=== PATIENT | male | born 1925 | race Caucasian/White ===

== ENCOUNTER 2016-04-08 09:43 | Inpatient (IN) | payer OTHER ==
--- NOTE | 2016-04-06 10:42 | GHP ---
[f rep st] PREOP HISTORY AND PHYSICAL DATE OF ADMISSION: 04/08/2016 HISTORY OF PRESENT ILLNESS: Patient is an 89-year-old male, who returns for surgery for his left leg . He has had a symptom of pain/claudication in his left leg for quite some time. In November 2015, the patient underwent a CT angiogram with runoff, done at [facility], which demonstrat ed total occlusion of the superficial femoral arteries, bilateral popliteal artery stenosis, occlusio ns of the posterior tibial arteries bilaterally, and occlusion of the left anterior tibial artery. T he patient underwent surgery January [address] Mas, a right femoral popliteal bypass with graf galvan. He subsequently developed a large seroma/abscess and underwent incision and drainage and further hospitalization, required wound care. The patient's right leg has healed and has no signs of infecti on. He desires left leg surgery because it is his more symptomatic leg. PAST MEDICAL HISTORY: Congestive heart failure. Coronary artery disease, status post CABG. Periphe ral vascular disease, hypertension, hyperlipidemia, chronic kidney disease, dementia. ALLERGIES: No known drug allergies. SOCIAL HISTORY: Former smoker. No alcohol. He moved from [place] approximately 10 months ago to [place] [employer] with his daughter. REVIEW OF SYSTEMS: He had a negative 10-point review of systems. MEDICATIONS: Please see list, which includes Plavix that patient should take through surgery. Other medications include Norvasc, Lasix, metoprolol, Lipitor, lisinopril. PHYSICAL EXAMINATION: GENERAL: Patient is an alert, elderly male, in no apparent distress. HEAD AN D NECK: Normocephalic atraumatic. CHEST: CTA bilaterally. HEART: Regular and rate. ABDOMEN: So ft, nontender. EXTREMITIES: Right leg demonstrates healed incision over the right medial thigh. Le ft leg decreased pulses to palpation, no edema; full range of motion of the knee and ankle without di fficulty. IMPRESSION: 89-year-old male with left leg pain/claudication in the setting of arterial stenosis. RECOMMENDATION: Left femoral popliteal bypass with possible vein graft was discussed with the patien t in detail, including risks of failure to heal, bleeding, infection, emboli, bypass failure, and rooney b loss. The patient would like to proceed with scheduling surgery for April 08, 2016. /[id number]/MODL
[~2016-04-08 09:43] MED LIST: ceFAZolin 2 GM/DEXTROSE 100 ML IV ONE
[2016-04-08] MEDS ORDERED: THROMBIN (RECOMBINANT) 20,000 UNIT SPRAY TP ONE (10:06)
[2016-04-08] MEDS ORDERED: PROTAMINE SULFATE 50 MG/5 ML VIAL IVP ONE ×2 (10:06→18:22)
[2016-04-08] MEDS ORDERED: IOTHALAMATE MEG (CONRAY) 50 ML VIAL IV ONE (10:06)
[2016-04-08] MEDS ORDERED: BUPIVACAINE 0.5% 30 ML SDV ONE (10:07)
[2016-04-08] MEDS ORDERED: PAPAVERINE HCL 60 MG/2 ML SDV ONE (10:07)
[2016-04-08] MEDS ORDERED: SKIN ADHESIVE (DERMABOND) 1 EACH TP ONE ×2 (10:08→18:58)
[2016-04-08] MEDS ORDERED: LR 1,000 ML IV ONE (11:00)
[2016-04-08] MEDS ORDERED: ceFAZolin 2 GM/DEXTROSE 100 ML IV ONE (11:00)
[2016-04-08] MEDS ORDERED: LIDOCAINE 1% 5 ML SDV ID PRN (11:00)
[2016-04-08] MEDS ORDERED: fentaNYL 250 MCG/5 ML INJ ONE (15:43)
[2016-04-08] MEDS ORDERED: PROPOFOL 200 MG/20 ML VIAL ONE (16:59)
[2016-04-08] MEDS ORDERED: COLLAGENASE 30 GM OINTMENT TP PRN (17:57)
[2016-04-08] MEDS ORDERED: PHENYLEPHRINE HCL 100 MCG/ML SYR ONE (17:58)
--- NOTE | 2016-04-08 18:03 | POSTOPPROG ---
Post Op Note Date of Operation: 04/08/16 Surgeon: Gustavo aMs Laborer Concrete Paving: Oswald Hodgson Anesthesiologist: Chase Warm Anesthesia: GET(General Endotracheal) Pre-op Diagnosis: severe L leg PVD, chronic LE wounds Post-op Diagnosis: same Procedure: L below knee fem pop bypass c impra graft c endarterectomy, profundoplasty Findings: hard calcified plaque Inf/Abcess present in the surg proc area at time of surgery?: No EBL: 50-100 Complications: none Specimen(s): plaque
[2016-04-08] MEDS ORDERED: DESMOPRESSIN ACETATE 18 MCG in NS 50 ML IV ONE (18:30)
[2016-04-08] MEDS ORDERED: ALBUMIN 5% 250 ML BOTTLE IV ONE (18:45)
[2016-04-08] MEDS: HYDROmorphONE/DILAUDID 1 MG/ML SYR IVP PRN ×2 (20:26→21:49)
[2016-04-08] MEDS: NS W/ 20 KCl/L 1,000 ML IV SCH (21:37)
[2016-04-08] MEDS: OXYCODONE/APAP 5/325 TAB PO PRN (21:41)
[2016-04-08] MEDS: OLANZapine 2.5 MG TAB PO SCH (21:42)
[2016-04-08] MEDS: traMADol 50 MG TAB PO PRN (21:42)
[2016-04-08] MEDS: DOXYCYCLINE HYCLATE 100 MG CAP/TAB PO SCH (21:42)
[2016-04-08] MEDS: METOPROLOL TARTRATE 25 MG TAB PO SCH (21:43)
[2016-04-08] MEDS: ONDANSETRON 4 MG/2 ML VIAL IVP PRN (23:21)
[2016-04-09 05:35] LABS: HEMATOCRIT 26.2 % (40.0-51.0); HEMOGLOBIN 8.8 g/dL (13.7-17.5)
[2016-04-09 05:42] LABS: ANION GAP 5 mEq/L (8-16); CALCIUM 7.2 mg/dL (8.5-10.4); CARBON DIOXIDE 22 mEq/l (22-31); CHLORIDE 110 mEq/L (97-110); CREATININE 1.1 mg/dL (0.7-1.3); GLOMERULAR FILTRATION RATE > 60; GLUCOSE 127 mg/dL (70-100); POTASSIUM 4.6 mEq/L (3.5-5.2); SODIUM 137 mEq/L (134-144)
--- NOTE | 2016-04-09 08:52 | WOCRNPDOC ---
LATRELL Advanced Assessment Note - Skin Integrity Problem, Advanced Assess Left Heel Dressing Type: Abdominal Pads, Allevyn Life Dressing Description: Clean/Dry Exudate Amount: Scant Exudate Color: Reddish/Yellow Exudate Characteristic(s): Serosanguinous Jarek Wound Tissue: Dry, Calloused Jarek Wound Swelling: None Wound Bed Color: Red, Yellow Wound Bed Constitution: Smooth Tissue, Loose Slough Wound Edges: Punched Out, Well Defined Site Odor: None Site Measurement - Head-to-Toe Length X Width X Depth (cm): 05.cmx0.5cmx0.3xm Skin Integrity Problem Comment: This patient is well known to wound care, previously seen before fem-pop bypass. Wound appearance consistent w/ arterial insufficiency, w/ cut-out, distinct margins. Wound bed is 75% smooth tissue, 25 % loose slough.Calloused jarek-wound tissue, w/ mild, superficial skin fissures noted throughout L heel. Patient reports significant pain when site cleansed. Post fem-pop, this site should begin to improve. Orders written for collagen gel and Hydrofera Blue Ready. Right Anterior Thigh Dressing Type: Gauze Dressing Description: Clean/Dry, Intact Exudate Amount: None Exudate Characteristic(s): None Integumentary Issue Intervention: Visualized Under Dressing Jarek Wound Tissue: Intact, Scarred Jarek Wound Swelling: Mild Wound Bed Color: Red Wound Bed Constitution: Smooth Tissue Wound Edges: Epithelizing Site Measurement - Head-to-Toe Length X Width X Depth (cm): 0.4cmx0.2cmx0.2cm Skin Integrity Problem Comment: This is a small, healing wound, previously a large surgical wound w/ wound vac. Presently the site is almost fully- epithelialized, narrow, shallow smooth-tissue filled wound remaining. Jarek- wound tissue is intact, scar tissue from healing wound. Orders written for collagen gel and small bordered dressing.
[2016-04-09] MEDS: ENOXAPARIN 40 MG/0.4 ML SYR SC SCH (09:38)
[2016-04-09] MEDS: ATORVASTATIN CALCIUM 40 MG TAB PO SCH (09:40)
[2016-04-09] MEDS: ISOSORBIDE MONONITRATE 30 MG TAB.SR PO SCH (09:40)
[2016-04-09] MEDS: DOXYCYCLINE HYCLATE 100 MG CAP/TAB PO SCH ×2 (09:40→20:56)
[2016-04-09] MEDS: LISINOPRIL 5 MG TAB PO SCH (09:42)
[2016-04-09] MEDS: METOPROLOL TARTRATE 25 MG TAB PO SCH ×2 (09:42→20:56)
--- NOTE | 2016-04-09 12:12 | SOAPPROG ---
SOAP Progress Note Assessment/Plan: Assessment/Plan: 89 Y M c cardiac hx, PVD, recent treated R leg MRSA, now s/p L leg below knee fem pop bypass c impra graft, femoral endarterectomy c profundoplasty, POD#1. Some confusion overnight but this has been patient's baseline since I've cared for him. Palpable PT pulse, confirmed by doppler. +DP pulse on doppler. Wounds well dressed and dry. D/c bedrest precautions. PT/OT. Avoid severe bending of knee and hip. Appreciate wound care assistance in care for L calcaneal and toe wounds. Transfer to tele. 04/09/16 12:08 Subjective: No complaints. Very pleasant this am. Says a man with a mask was walking in the [place] last night. Objective: Vital Signs Temp Pulse Resp BP Pulse Ox 35.8 C L 63 11 L 82/22 L 96 04/08/16 20:00 04/09/16 11:00 04/09/16 11:00 04/09/16 11:00 04/09/16 11:00 Laboratory Results 04/09/16 05:15 04/09/16 05:15 04/08/16 04/09/16 04/10/16 05:59 05:59 05:59 Intake Total 700 Output Total 500 Balance 200 alert, nad ctab anteriorly rrr abd soft ext: LLE: groin and knee dressings dry. 1+ PT pulse, doppler DP. calcaneal ulcer clean, ~1 cm ICD10 Worksheet Patient Problems: Problems Problem Status Diagnosed Altered mental status Acute Cellulitis Acute Dehydration Acute MRSA (methicillin resistant Staphylococcus aureus) Acute 02/29/16 PVD (peripheral vascular disease) with claudication Acute
[2016-04-09] MEDS ORDERED: NS 500 ML IV ONE (13:00)
[2016-04-09] MEDS: HYDROmorphONE/DILAUDID 1 MG/ML SYR IVP PRN (16:48)
[2016-04-09] MEDS: FUROSEMIDE 40 MG TAB PO SCH (16:49)
[2016-04-09 17:16] LABS: HEMATOCRIT 24.5 % (40.0-51.0); HEMOGLOBIN 8.4 g/dL (13.7-17.5)
[2016-04-09] MEDS: ONDANSETRON 4 MG/2 ML VIAL IVP PRN (17:34)
[2016-04-09] MEDS: OXYCODONE/APAP 5/325 TAB PO PRN ×2 (17:47→23:11)
[2016-04-09] MEDS: traMADol 50 MG TAB PO PRN (18:39)
[2016-04-09] MEDS: OLANZapine 2.5 MG TAB PO SCH (20:55)
[2016-04-10] MEDS: NS W/ 20 KCl/L 1,000 ML IV SCH (01:19)
[2016-04-10] MEDS ORDERED: HALOPERIDOL LACT 5 MG/ML INJ IVP ONE (04:00)
[2016-04-10 04:27] LABS: HEMATOCRIT 21.6 % (40.0-51.0); HEMOGLOBIN 7.3 g/dL (13.7-17.5); MEAN CELL HEMOGLOBIN 32.2 pg (27.9-34.1); MEAN CELL HEMOGLOBIN CONCENTR. 33.8 g/dL (32.4-36.7); MEAN CELL VOLUME 95.2 fL (81.5-99.8); RED BLOOD CELL COUNT 2.27 10^6/uL (4.40-6.38)
[2016-04-10 04:44] LABS: ANION GAP 6 mEq/L (8-16); CALCIUM 6.9 mg/dL (8.5-10.4); CARBON DIOXIDE 20 mEq/l (22-31); CHLORIDE 115 mEq/L (97-110); GLOMERULAR FILTRATION RATE > 60; GLUCOSE 93 mg/dL (70-100); POTASSIUM 4.7 mEq/L (3.5-5.2); SODIUM 141 mEq/L (134-144)
[2016-04-10] MEDS: METOPROLOL TARTRATE 25 MG TAB PO SCH ×2 (09:28→21:28)
[2016-04-10] MEDS: ATORVASTATIN CALCIUM 40 MG TAB PO SCH (09:28)
[2016-04-10] MEDS: ENOXAPARIN 40 MG/0.4 ML SYR SC SCH (09:29)
[2016-04-10] MEDS: DOXYCYCLINE HYCLATE 100 MG CAP/TAB PO SCH ×2 (09:29→21:28)
[2016-04-10] MEDS: LISINOPRIL 5 MG TAB PO SCH (09:29)
[2016-04-10] MEDS: OXYCODONE/APAP 5/325 TAB PO PRN (11:09)
[2016-04-10] MEDS: FUROSEMIDE 40 MG TAB PO SCH (12:36)
--- NOTE | 2016-04-10 12:46 | SOAPPROG ---
SOAP Progress Note Assessment/Plan: Assessment: 89yo male s/p left below knee Fem pop bypass, femoral endarterectomy, MRSA positive last month from right leg wound. PE awake, confused but follows very simple commands, pleasant. Left leg mild ecchymosis left lower leg with small amount of drainage, thigh soft, Doppler pulse DP, PT Plan: ok to ambulate, continue slouch sitting. 04/10/16 12:44 Objective: Vital Signs Temp Pulse Resp BP Pulse Ox 36.4 C 70 20 129/46 H 95 04/10/16 11:45 04/10/16 11:45 04/10/16 11:45 04/10/16 11:45 04/10/16 11:45 Laboratory Results 04/10/16 04:00 04/10/16 04:00 04/09/16 04/10/16 04/11/16 05:59 05:59 05:59 Intake Total 700 2515 355 Output Total 500 900 200 Balance 200 1615 155 ICD10 Worksheet Patient Problems: Problems Problem Status Diagnosed Altered mental status Acute Cellulitis Acute Dehydration Acute MRSA (methicillin resistant Staphylococcus aureus) Acute 02/29/16 PVD (peripheral vascular disease) with claudication Acute
[2016-04-10] MEDS: ISOSORBIDE MONONITRATE 30 MG TAB.SR PO SCH (14:36)
[2016-04-10] MEDS ORDERED: NS 1,000 ML IV SCH (16:30)
[2016-04-10 19:06] LABS: % IMMATURE GRANULYOCYTES 0.7 % (0.0-1.1); ADD DIFF? NO; ADD MORPH? NO; ADD SCAN? NO; ATYPICAL LYMPHOCYTE FLAG 0 (0-99); FRAGMENT RBC FLAG 0 (0-99); HEMATOCRIT 28.5 % (40.0-51.0); HEMOGLOBIN 9.5 g/dL (13.7-17.5); LEFT SHIFT FLG 10 (0-99); LIPEMIA HEMOLYSIS FLAG 80 (0-99); MEAN CELL HEMOGLOBIN 30.4 pg (27.9-34.1); MEAN CELL HEMOGLOBIN CONCENTR. 33.3 g/dL (32.4-36.7); MEAN CELL VOLUME 91.1 fL (81.5-99.8); MEAN PLATELET VOLUME 10.1 fL (8.7-11.7); PLATELET CLUMPS FLAG 0 (0-99); PLATELET COUNT 83 10^3/uL (150-400); RED BLOOD CELL COUNT 3.13 10^6/uL (4.40-6.38); RED CELL DISTRIBUTION WIDTH 19.3 % (11.5-15.2)
[2016-04-10] MEDS: OLANZapine 2.5 MG TAB PO SCH (21:27)
[2016-04-11] MEDS: FUROSEMIDE 40 MG TAB PO SCH (12:00)
[2016-04-11] MEDS: ISOSORBIDE MONONITRATE 30 MG TAB.SR PO SCH (12:00)
[2016-04-11] MEDS: METOPROLOL TARTRATE 25 MG TAB PO SCH ×2 (12:00→20:19)
[2016-04-11] MEDS: ATORVASTATIN CALCIUM 40 MG TAB PO SCH (12:00)
[2016-04-11] MEDS: CLOPIDOGREL BISULFATE 75 MG TAB PO SCH (12:00)
[2016-04-11] MEDS: DOXYCYCLINE HYCLATE 100 MG CAP/TAB PO SCH ×2 (12:00→20:19)
[2016-04-11] MEDS: LISINOPRIL 5 MG TAB PO SCH (12:00)
[2016-04-11] MEDS ORDERED: POLYETHYLENE GLYCOL 3350 17 GM PKT PO PRN (18:46)
[2016-04-11] MEDS ORDERED: BISACODYL 10 MG SUPP PR PRN (18:46)
[2016-04-11] MEDS ORDERED: LACTULOSE 20 GM/30 ML UDCUP PO PRN (18:46)
[2016-04-11] MEDS ORDERED: MAGNESIUM HYDROXIDE 30 ML UDCUP PO PRN (18:46)
[2016-04-11 19:02] LABS: % IMMATURE GRANULYOCYTES 0.5 % (0.0-1.1); ABSOLUTE IMMATURE GRANULOCYTES 0.07 10^3/uL (0.00-0.10); ADD DIFF? NO; ADD MORPH? NO; ADD SCAN? NO; ATYPICAL LYMPHOCYTE FLAG 0 (0-99); FRAGMENT RBC FLAG 0 (0-99); HEMATOCRIT 27.8 % (40.0-51.0); HEMOGLOBIN 9.4 g/dL (13.7-17.5); LEFT SHIFT FLG 0 (0-99); LIPEMIA HEMOLYSIS FLAG 90 (0-99); MEAN CELL HEMOGLOBIN 31.2 pg (27.9-34.1); MEAN CELL HEMOGLOBIN CONCENTR. 33.8 g/dL (32.4-36.7); MEAN CELL VOLUME 92.4 fL (81.5-99.8); MEAN PLATELET VOLUME 10.6 fL (8.7-11.7); PLATELET CLUMPS FLAG 10 (0-99); PLATELET COUNT 80 10^3/uL (150-400); RED BLOOD CELL COUNT 3.01 10^6/uL (4.40-6.38); RED CELL DISTRIBUTION WIDTH 18.7 % (11.5-15.2)
[2016-04-11] MEDS: SENNOSIDES/DOCUSATE SODIUM TAB PO SCH (20:19)
[2016-04-11] MEDS: OLANZapine 2.5 MG TAB PO SCH (20:19)
[2016-04-12] MEDS: ISOSORBIDE MONONITRATE 30 MG TAB.SR PO SCH (08:26)
[2016-04-12] MEDS: SENNOSIDES/DOCUSATE SODIUM TAB PO SCH ×2 (08:26→20:59)
[2016-04-12] MEDS: LISINOPRIL 5 MG TAB PO SCH (08:27)
[2016-04-12] MEDS: FUROSEMIDE 40 MG TAB PO SCH (08:27)
[2016-04-12] MEDS: DOXYCYCLINE HYCLATE 100 MG CAP/TAB PO SCH ×2 (08:27→20:54)
[2016-04-12] MEDS: CLOPIDOGREL BISULFATE 75 MG TAB PO SCH (08:27)
[2016-04-12] MEDS: ATORVASTATIN CALCIUM 40 MG TAB PO SCH (08:27)
[2016-04-12] MEDS: METOPROLOL TARTRATE 25 MG TAB PO SCH ×2 (08:27→20:54)
--- NOTE | 2016-04-12 11:13 | SOAPPROG ---
SOAP Progress Note Assessment/Plan: Assessment: s/p fem pop and femoral endarterectomy. Doing well May ambulate Slouch sitting S: Has pain but tolerable Incision at groin is cdi Ecchymosis by incision on lower leg Foot swollen and tender. Faint palpable pulse CTAB Plan: 04/12/16 11:12 Objective: Vital Signs Temp Pulse Resp BP Pulse Ox 36.5 C 87 14 158/67 H 99 04/12/16 08:00 04/12/16 08:00 04/12/16 08:00 04/12/16 08:00 04/12/16 08:00 Laboratory Results 04/11/16 18:34 04/10/16 04:00 04/11/16 04/12/16 04/13/16 05:59 05:59 05:59 Intake Total 2438.5 2461 Output Total 9308 0970 Balance 588.5 -389 ICD10 Worksheet Patient Problems: Problems Problem Status Diagnosed Altered mental status Acute Cellulitis Acute Dehydration Acute MRSA (methicillin resistant Staphylococcus aureus) Acute 02/29/16 PVD (peripheral vascular disease) with claudication Acute
[2016-04-12] MEDS: traMADol 50 MG TAB PO PRN (14:42)
--- NOTE | 2016-04-12 16:55 | CPEKG ---
Heart Rate: 81 RR Interval: 741 QRSD Interval: 108 QT Interval: 404 QTC Interval: 469 QRS Ideal: 71 T Wave Ideal: 50 EKG Severity - ABNORMAL ECG - EKG Impression: ATRIAL FIBRILLATION EKG Impression: LOW VOLTAGE IN FRONTAL LEADS EKG Impression: LEFT VENTRICULAR HYPERTROPHY EKG Impression: LVH noted. Electronically Signed By: Jori Guerra 13-Apr-2016 08:34:19
[2016-04-12 17:31] LABS: TROPONIN I 0.265 ng/mL (0-0.034)
--- NOTE | 2016-04-12 18:43 | DX ---
Portable AP Upright Chest April 12, 2016 at 6:22 p.m. Clinical History: 89-year-old male inpatient with chest pain. The patient has a prior surgical histor y of a right femoropopliteal bypass on February 11, 2016. Comparison Study: Chest, dated February 29, 2016. Findings: Again noted are median sternotomy wires and mediastinal surgical clips. Telemetry monitorin g lead lines and oxygen tubing are present. The cardiac silhouette is within normal limits, given the portable AP technique. There has been development of bibasilar areas of pleuroparenchymal consolidat ion, consistent with atelectasis, infiltrate, and/or pleural effusion. The pulmonary vasculature is n ormal. There is mural calcification of the aortic knob. There is no pneumothorax. The osseous structu res are age-appropriate Impression: Postoperative changes following a prior CABG, with interim development of some bibasilar pleuroparenchymal consolidation since February 29, 2016.
[2016-04-12] MEDS ORDERED: ASPIRIN 325 MG TAB PO ONE (19:42)
--- NOTE | 2016-04-12 19:55 | CPEKG ---
Heart Rate: 83 RR Interval: 723 P-R Interval: 196 QRSD Interval: 112 QT Interval: 400 QTC Interval: 470 P Gormania: 51 QRS Gormania: 60 EKG Severity - ABNORMAL ECG - EKG Impression: SINUS RHYTHM EKG Impression: NONSPECIFIC INTRAVENTRICULAR CONDUCTION DELAY EKG Impression: LEFT VENTRICULAR HYPERTROPHY Electronically Signed By: Jori Guerra 13-Apr-2016 08:33:32
[2016-04-12] MEDS: OLANZapine 2.5 MG TAB PO SCH (20:53)
--- NOTE | 2016-04-12 21:23 | GCON ---
[f rep ] CONSULTATION [facility] MEDICINE CONSULTATION. DATE OF CONSULTATION: 04/12/2016 REASON FOR CONSULTATION: I was asked to see the patient by Dr. Mona De La Vega to evaluate a patient wit h peripheral vascular disease status post fall. HISTORY OF PRESENT ILLNESS: The patient is a pleasant 89-year-old gentleman with a history of ng ry artery disease, peripheral vascular disease, who was admitted on the on for an elective femora l-popliteal and that was performed on the . He has been doing well postoperatively and today he had a fall. It appears to be mechanical in nature. He denies antecedent chest pain, lightheadedness , loss of consciousness, though he did bump his head. He is currently without complaints. He has last d no chest pain, no anginal pain. When I see the patient, he is watching the football game, clearly non-comfortable and really without complaint. He says his leg feels better. He mentions he had a bowel movement this morning. REVIEW OF SYSTEMS: A complete 10-point review of systems was conducted. Negative, except as noted i n the HPI. PAST MEDICAL HISTORY: 1. Coronary artery disease status post CABG. He had angiogram done here in February which showed 3- vessel disease with patent grafts and a plan for medical management. 2. Congestive heart failure. 3. Chronic kidney disease, baseline creatinine about 1 to 1.2. 4. Peripheral vascular disease. 5. Hypertension. 6. Hyperlipidemia. 7. Dementia. 8. Congestive heart failure with February 2016 echocardiogram showing EF of 45-50% with hypo akinesi s of the anteroseptal. ALLERGIES: No known drug allergies. MEDICATIONS: Current medications are aspirin, lactulose, hydromorphone, doxycycline, bisacodyl, Imdu r, Lasix, atorvastatin, metoprolol 12.5 b.i.d., magnesium hydroxide, MiraLAX, normal saline, Percocet , Plavix, collagenase, senna, tramadol, lisinopril, olanzapine, ondansetron. SOCIAL HISTORY: He moved here from [place] to be within his daughter. No alcohol. A former smoker. FAMILY HISTORY: Parents . PHYSICAL EXAM: VITAL SIGNS: Temperature 36.3, blood pressure 92/44, pulse 85, breathing 20 times a minute, 98% on room air. GENERAL: In no acute distress. Lying flat. HEENT: Sclerae anicteric. O ropharynx clear. Mucous membranes are moist. NECK: Supple without lymphadenopathy or JVD. LUNGS: Clear to auscultation bilaterally. HEART: S1, S2. ABDOMEN: Soft, nontender, nondistended. EXTRE MITIES: Lower extremities: Bandage in the left lower extremity. There is trace edema bilaterally. They are warm, pale. LABORATORIES: His white count yesterday was 13 with a hematocrit of 27.8 and platelets of 80,000. Two days ago, sodium was 141, potassium 4.7, chloride 115, bicarb 20, BUN 26, creatinine 1.0. Today at 4:45 p.m., his troponin was 0.265. He did have an N-STEMI that peaked at 3 in February. EKG interpreted by me shows atrial fibrillation at 81 with normal axis. There is J-point elevation i n lead 3; otherwise no ST or T-wave changes; and that was performed at 4:00 p.m. Chest x-ray interpreted by me shows postoperative changes of CABG, a pleural-parenchymal consolidatio n new from February. I have discussed the case with Dr. Mona De La Vega. ASSESSMENT/PLAN: An 89-year-old gentleman with fall and positive troponin. 1. Fall. I suspect this is mechanical in nature. I have written to check orthostatics which I thin k is reasonable. This could be done in the morning. Will follow him on telemetry. Have physical an d occupational therapy see him, which is currently ordered. 2. Positive troponin. The patient has known coronary disease. Will cycle this. His EKG is nonisch emic and he is not having anginal symptoms. Will follow. I have discussed with Dr. De La Vega. Will giv e him an aspirin. 3. Peripheral vascular disease status post bypass. 4. Anemia. Will repeat a hemoglobin in the morning. 5. Prophylaxis. The patient is on enoxaparin. 6. Coronary disease. On SHERRELL inhibitor, beta-maryuri, Plavix, aspirin, statin, and a long-acting nit rate, representing ideal medical management. 7. Question pneumonia. He is on doxycycline. We will follow. A chest x-ray was not super-overwhel kris to me. He is afebrile. Thank you for this consultation. Hospital Medicine will follow. /[id number]/MODL
[2016-04-13 06:58] LABS: % IMMATURE GRANULYOCYTES 0.5 % (0.0-1.1); ABSOLUTE IMMATURE GRANULOCYTES 0.05 10^3/uL (0.00-0.10); ADD DIFF? NO; ADD MORPH? NO; ADD SCAN? NO; ATYPICAL LYMPHOCYTE FLAG 0 (0-99); FRAGMENT RBC FLAG 0 (0-99); HEMATOCRIT 27.9 % (40.0-51.0); HEMOGLOBIN 9.6 g/dL (13.7-17.5); LEFT SHIFT FLG 10 (0-99); LIPEMIA HEMOLYSIS FLAG 90 (0-99); MEAN CELL HEMOGLOBIN 31.5 pg (27.9-34.1); MEAN CELL HEMOGLOBIN CONCENTR. 34.4 g/dL (32.4-36.7); MEAN CELL VOLUME 91.5 fL (81.5-99.8); MEAN PLATELET VOLUME 10.2 fL (8.7-11.7); PLATELET CLUMPS FLAG 0 (0-99); PLATELET COUNT 99 10^3/uL (150-400); RED BLOOD CELL COUNT 3.05 10^6/uL (4.40-6.38); RED CELL DISTRIBUTION WIDTH 17.7 % (11.5-15.2)
[2016-04-13 07:08] LABS: ANION GAP 4 mEq/L (8-16); CALCIUM 7.5 mg/dL (8.5-10.4); CARBON DIOXIDE 28 mEq/l (22-31); CHLORIDE 104 mEq/L (97-110); CREATININE 1.1 mg/dL (0.7-1.3); GLOMERULAR FILTRATION RATE > 60; GLUCOSE 91 mg/dL (70-100); POTASSIUM 3.6 mEq/L (3.5-5.2); SODIUM 136 mEq/L (134-144)
[2016-04-13 07:18] LABS: TROPONIN I 0.309 ng/mL (0-0.034)
[2016-04-13] MEDS: SENNOSIDES/DOCUSATE SODIUM TAB PO SCH ×2 (09:09→19:56)
[2016-04-13] MEDS: METOPROLOL TARTRATE 25 MG TAB PO SCH ×2 (09:15→19:58)
[2016-04-13] MEDS: FUROSEMIDE 40 MG TAB PO SCH (09:16)
[2016-04-13] MEDS: ATORVASTATIN CALCIUM 40 MG TAB PO SCH (09:16)
[2016-04-13] MEDS: ISOSORBIDE MONONITRATE 30 MG TAB.SR PO SCH (09:16)
[2016-04-13] MEDS: CLOPIDOGREL BISULFATE 75 MG TAB PO SCH (09:16)
[2016-04-13] MEDS: LISINOPRIL 5 MG TAB PO SCH (09:16)
[2016-04-13] MEDS: DOXYCYCLINE HYCLATE 100 MG CAP/TAB PO SCH ×2 (09:16→19:56)
--- NOTE | 2016-04-13 09:40 | SOAPPROG ---
SOAP Progress Note Assessment/Plan: Assessment: s/p fem pop and femoral endarterectomy. Elevated Troponin - appreciate hospitalists. Unsure of significance Fell yesterday but no residual effects May ambulate Slouch sitting S: Has pain but tolerable Incision at groin is cdi Ecchymosis by incision on lower leg Foot less swollen and less tender. Faint palpable pulse CTAB Plan: 04/12/16 11:12 04/13/16 09:39 Objective: Vital Signs Temp Pulse Resp BP Pulse Ox 36.7 C 66 13 144/85 H 97 04/13/16 08:00 04/13/16 08:00 04/13/16 08:00 04/13/16 08:00 04/13/16 08:00 Laboratory Results 04/13/16 06:49 04/13/16 06:49 04/12/16 04/13/16 04/14/16 05:59 05:59 05:59 Intake Total 2461 1180 Output Total 2850 1200 Balance -389 -20 ICD10 Worksheet Patient Problems: Problems Problem Status Diagnosed Altered mental status Acute Cellulitis Acute Dehydration Acute MRSA (methicillin resistant Staphylococcus aureus) Acute 02/29/16 PVD (peripheral vascular disease) with claudication Acute
--- NOTE | 2016-04-13 12:01 | HOSPPROG ---
Hospitalist Progress Note Assessment/Plan: 89 y/o male new to my care today admitted by trauma s/p fall with: #elevated troponin (asymptomatic) -obtain echo to eval for wall motion abnormality -will consider cards consultation as indicated #PVD (stable) #Anemia #questionable pna -cont doxy as ordered to complete 7 days of treatment #prerenal azotemia -cont to monitor Hosp med will continue to follow Subjective: denies chest pain/sob/cough/fever or chills Objective: Vital Signs Temp Pulse Resp BP Pulse Ox 36.7 C 115 H 13 108/40 L 97 04/13/16 08:00 04/13/16 11:00 04/13/16 08:00 04/13/16 11:00 04/13/16 08:00 Laboratory Results 04/13/16 06:49 04/13/16 06:49 04/12/16 04/13/16 04/14/16 05:59 05:59 05:59 Intake Total 2461 1180 Output Total 2850 1200 Balance -389 -20 Laboratory Tests 04/12/16 04/12/16 04/13/16 16:45 23:45 06:49 Troponin I 0.265 H 0.325 H 0.309 H - Physical Exam Constitutional: no apparent distress, appears nourished, not in pain Cardiovascular: regular rate and rhythym, no murmur, rub, or gallop Respiratory: no respiratory distress, no rales or rhonchi, clear to auscultation Gastrointestinal: normoactive bowel sounds, soft, non-tender abdomen, no palpable masses, No guarding, No rebound ICD10 Worksheet Patient Problems: Problems Problem Status Diagnosed Altered mental status Acute Cellulitis Acute Dehydration Acute MRSA (methicillin resistant Staphylococcus aureus) Acute 02/29/16 PVD (peripheral vascular disease) with claudication Acute
[2016-04-13] MEDS: OLANZapine 2.5 MG TAB PO SCH (19:54)
[2016-04-14 08:06] VITALS: RESP 20
[2016-04-14] MEDS: ISOSORBIDE MONONITRATE 30 MG TAB.SR PO SCH (09:08)
[2016-04-14] MEDS: ATORVASTATIN CALCIUM 40 MG TAB PO SCH (09:08)
[2016-04-14] MEDS: LISINOPRIL 5 MG TAB PO SCH (09:08)
[2016-04-14] MEDS: METOPROLOL TARTRATE 25 MG TAB PO SCH (09:08)
[2016-04-14] MEDS: CLOPIDOGREL BISULFATE 75 MG TAB PO SCH (09:08)
[2016-04-14] MEDS: DOXYCYCLINE HYCLATE 100 MG CAP/TAB PO SCH (09:08)
[2016-04-14] MEDS: FUROSEMIDE 40 MG TAB PO SCH (09:09)
[2016-04-14] MEDS: SENNOSIDES/DOCUSATE SODIUM TAB PO SCH (09:10)
--- NOTE | 2016-04-14 09:26 | ECHO ---
[id number] + + [address] : : [place] [id number] : : [phone] + + Adult Echocardiographic Report + -------+ :Name: ARIK SINCLAIR RStudy Date: 04/13/2016 11:44 AM : : Hospital Admission Number: [id number] Locati on: 204: :: 1925 Gender: Male : :Age: 89 yrs Race: WH : :Reason For Study: Eval for wall motion abnormalitiy : + -------+ MMode/2D Measurements & Calculations LVIDd: 4.0 cm EDV(Teich): 71.5 ml Ao root diam: 3.5 cm LA dimension: 3.0 cm Normal Measurement Values: + + :LVIDd (3.5-5.7cm) IVSd (0.6-1.1cm) LVPWd (0.6-1.1cm) Aortic Root (2.0-3.7cm)Left Atrium (1.5-4.0cm): :LV Vol(d) (76-115ml) LV Vol(s) (29-48ml) Ejec Fraction (50-65%)PV Abel (0.6- 1.2m/s) TV Abel (0.4-1.0m/s) : :MV E Abel (0.8-1.0m/s)MV A Abel (0.3-1.0m/s)LVOT Abel (0.7-1.2m/s) Asc Ao Abel ( 0.9-1.8m/s) : + + Doppler Measurements & Calculations MV E max abel: 87.4 cm/sec Ao V2 max: 131.2 cm/sec TR max abel: 251.9 cm/sec MV A max abel: 82.4 cm/sec Ao max P.9 mmHg TR max P.4 mmHg MV E/A: 1.1 RAP systole: 5.0 mmHg RVSP(TR): 30.4 mmHg Left Ventricle The left ventricle is normal in size. Proximal septal thickening is noted. The left ventricle is hyperdynamic. Ejection Fraction = 60-65%. No regional wall motion abnormalities noted. Right Ventricle The right ventricle is normal in size and function. Atria The left atrial size is normal. Right atrial size is normal. The interatrial septum is intact with no evidence for an atrial septal defect. Mitral Valve The mitral valve leaflets appear thickened, but open well. There is no evidence of mitral valve prolapse. There is no mitral valve stenosis. There is mild to moderate mitral regurgitation. Tricuspid Valve Normal tricuspid valve. There is mild tricuspid regurgitation. Right ventricular systolic pressure is normal. Aortic Valve The aortic valve is trileaflet. The aortic valve opens well. Mild aortic valve calcification. There is no aortic stenosis. Trace aortic regurgitation. Pulmonic Valve The pulmonic valve is normal in structure and function. There is no pulmonic valvular regurgitation. Great Vessels The aortic root is normal size. Pericardium/Pleural There is no pericardial effusion. Conclusion A complete two-dimensional transthoracic echocardiogram was performed (2D, M-mode, Doppler and color flow Doppler). Compared to the previous echo of 02/13/16, the EF has improved. Proximal septal thickening is noted. The left ventricle is hyperdynamic. Ejection Fraction = 60-65%. The mitral valve leaflets appear thickened, but open well. There is mild to moderate mitral regurgitation. There is mild tricuspid regurgitation. Right ventricular systolic pressure is normal. Mild aortic valve calcification. Trace aortic regurgitation. Compared to the echo of 02 12 and03/05 2016 there has been no significant change. The septal wall of the LV is consistent with the sigmoid shaped septum of the elderly with associated thickening, and No evidence of outflow tract obstruction. The LV EF is higher at 60 to 65%. No significant changes are noted. Final Reading Physician: Britney Srivastava signed on 04/14/2016 09:26 AM Ordering Physician: Bryan May Performed By: Malika Johnston, YURICS
--- NOTE | 2016-04-14 09:48 | SOAPPROG ---
SOAP Progress Note Assessment/Plan: Assessment/Plan: 89 Y M c cardiac hx, PVD, recent treated R leg MRSA, now s/p L leg below knee fem pop bypass c impra graft, femoral endarterectomy c profundoplasty. Inc's cdi. Palpable pedal pulses. L calcaneal ulcer healing, smaller. PT/OT. Appreciate hospitalist input re: elevated troponins. Dispo: Doing well from surgery. Consider SNF soon once medically cleared. S: Confused. This seems baseline since I've known him. Asks me how my mother is and when school starts. O: alert, confused ctab anteriorly rrr abd soft inc cdi no erythema, some ecchymosis lightly palpable PT pulse c trace edema calcaneal ulcer clean, smaller 04/14/16 09:44 Objective: Vital Signs Temp Pulse Resp BP Pulse Ox 36.6 C 78 20 108/77 99 04/14/16 08:00 04/14/16 08:00 04/14/16 08:00 04/14/16 08:00 04/14/16 08:00 Laboratory Results 04/13/16 06:49 04/13/16 06:49 04/13/16 04/14/16 04/15/16 05:59 05:59 05:59 Intake Total 1180 300 Output Total 1200 1125 Balance -20 -825 ICD10 Worksheet Patient Problems: Problems Problem Status Diagnosed Altered mental status Acute Cellulitis Acute Dehydration Acute MRSA (methicillin resistant Staphylococcus aureus) Acute 02/29/16 PVD (peripheral vascular disease) with claudication Acute
[2016-04-14 11:17] VITALS: BP 131/68; PULSE 84; TEMP 96.8; O2SAT 98
[2016-04-14] MEDS: traMADol 50 MG TAB PO PRN (12:01)
--- NOTE | 2016-04-14 12:39 | PDIAF ---
- Diagnosis Code Status: Full Code - Medication Management Discharge Medications: Medications to Continue on Transfer Lisinopril [Zestril 5 mg (*)] 5 mg PO DAILY 01/11/16 [Last Taken 02/28/16] Multivitamins [Multivitamin (*)] 1 each PO DAILY 01/11/16 [Last Taken 02/28/16] Clopidogrel Bisulfate [Plavix (*)] 75 mg PO DAILY #30 tab 01/18/16 [Last Taken 02/28/16] Atorvastatin Calcium [Lipitor 40 mg (*)] 40 mg PO DAILY #0 tab 02/17/16 [Last Taken 02/28/16] Metoprolol Tartrate [Lopressor 25 mg (*)] 12.5 mg PO BID #0 tab 02/17/16 [Last Taken 02/28/16] Furosemide [Lasix 40 MG (*)] 40 mg PO DAILY #0 tab 03/17/16 [Last Taken Unknown] Isosorbide Mononitrate [Imdur 30 mg (*)] 30 mg PO DAILY #0 tab.sr 03/17/16 [ Last Taken Unknown] Collagenase [Santyl (*)] 1 henri TP DAILY PRN 04/02/16 [Last Taken Unknown] Olanzapine [Zyprexa] 5 mg PO HS 04/02/16 [Last Taken Unknown] traMADol [Ultram 50 mg (*)] 50 mg PO Q8 PRN 04/02/16 [Last Taken Unknown] Discharge Medications: Refer to the Discharge Home Medication list for PRN reason. - Orders Services needed: Physical Therapy, Occupational Therapy Diet Recommendation: no restrictions on diet Wound Care Instructions: Wound care orders: Dressing change orders for L heel: to be done by fisher crab q 3 days and PRN. 1) cleanse w/ NS and gauze, attempting to remove any loose tissue. 2) apply skin prep to jarek-wound skin. 3) apply small bead of Keragel (in patient's wound care supplies) to wound bed. 4) cut small piece of Hydrofera Blue Ready dressing to fit in wound bed, placing the shiny side up and the dull side down into wound. 5) secure w/ steri -strips (may use Mastisol to help steri-strips adhere). 6) cover w/ 5X5 Allevyn Life dressing. Dressing change orders for R upper anterior leg (R thigh ): to be done by fisher crab q 3 days and PRN. 1) cleanse w/ NS and gauze. 2) apply skin prep to jarek-wound skin. 3) apply Keragel (in patient's wound care supplies) to wound bed. 4) cover w/ Allevyn Life dressing. Sutures/[place] Site: Follow-up with Dr. Mas - Follow Up Care Current Providers and Referrals: Gil Peters MD [Primary Care Provider] - Gustavo Mas MD [Medical Doctor] -
[2016-04-14] MEDS: OXYCODONE/APAP 5/325 TAB PO PRN (14:39)
--- NOTE | 2016-04-14 19:30 | GDS ---
[f rep st] DISCHARGE SUMMARY DISCHARGE DIAGNOSES: 1. Peripheral vascular disease with chronic lower extremity wound, status post left femoral-popliteal bypass. 2. Coronary artery disease, status post coronary artery bypass grafting. 3. Persistent troponin elevation. 4. Congestive heart failure, ejection fraction 45%. 5. Dementia. 6. Chronic kidney disease. HISTORY: Silvio is an 89-year-old male, who presented for an elective fem-pop bypass performed by Dr. Mas. He did have a postoperative fall, which was mechanical in nature. There was no chest pain or shortness of breath. He was however, found to have an elevated troponin, although they remained relatively flat around 0.38. He does have a known history of coronary disease and had a bypass in the past. He had a recent angiogram in February, which showed 3- vessel disease of his marshall coronary arteries, but patent grafts. Postoperative course continued to be unremarkable. His troponin elevation remained flat, and he had no signs or symptoms concerning for active coronary artery disease. His EKG was nonischemic. He was continued with medical management. He does have quite advanced dementia. As he is asymptomatic and had a recent coronary cardiac catheterization, no further aggressive cardiac intervention is indicated at this time. He will likely have a chronically elevated troponin due to his underlying marshall coronary artery disease, although he does have successful bypass grafts which remain patent. DISCHARGE MEDICATIONS: Please see computer record for full detailed list. There were no new medications given at the time of hospital discharge. He is on a good, chronic regimen for his coronary artery disease and peripheral vascular disease, including Plavix, Lipitor, lisinopril, metoprolol, Imdur, and Lasix. ADDITIONAL DISCHARGE INSTRUCTIONS: 1. Please refer to the chart for wound care orders. 2. Discharged to nursing home facility for further rehabilitation. Greater than 30 minutes' time was spent arranging this discharge. Patient was seen and examined by me on day of discharge. /[id number]/MODL MTDD
== END 2016-04-14 15:45 | DRG 254 ==
LOC: F3E 09:43 → F2N 09:43 → F2W 04-10 14:20
PROVIDERS: ADMIT Surgery; ATTEND Surgery
PROC: 30243N1 Transfusion of Nonautologous Red Blood Cells into Central Vein, Percutaneous Approach (ICD-10-PCS; principal; 2016-04-08 11:45)
PROC: 04CL0ZZ Extirpation of Matter from Left Femoral Artery, Open Approach (ICD-10-PCS; principal; 2016-04-08 11:45)
PROC: 041L0JL Bypass Left Femoral Artery to Popliteal Artery with Synthetic Substitute, Open Approach (ICD-10-PCS; principal; 2016-04-08 11:45)
DX: I70.244 Atherosclerosis of native arteries of left leg with ulceration of heel and midfoot (principal); L98.499 Non-pressure chronic ulcer of skin of other sites with unspecified severity; I25.10 Atherosclerotic heart disease of native coronary artery without angina pectoris; I12.9 Hypertensive chronic kidney disease with stage 1 through stage 4 chronic kidney disease, or unspecified chronic kidney disease; N18.9 Chronic kidney disease, unspecified; Z95.1 Presence of aortocoronary bypass graft; Z87.891 Personal history of nicotine dependence; Z86.14 Personal history of Methicillin resistant Staphylococcus aureus infection; I50.9 Heart failure, unspecified; F03.90 Unspecified dementia, unspecified severity, without behavioral disturbance, psychotic disturbance, mood disturbance, and anxiety; Z79.02 Long term (current) use of antithrombotics/antiplatelets; D64.9 Anemia, unspecified
CPT/HCPCS: 97116-GP; 97162-GP; 97166-GO; 97530-GO; 97530-GP; 97535-GO; C1768; G8978-GP-CM; G8979-GP-CL; G8987-GO-CM; G8988-GO-CJ; G8989-GO-CJ; J0690; J1170; J1644; J1650; J2370; J2405; J2440; J2597; J2704; J2720; J3010; P9016; P9041; Q9961